=== PATIENT | female | born 1965 | race Caucasian/White ===

== ENCOUNTER 2023-04-15 12:11 | Emergency (ER) | payer OTHER, BC ==
[~2023-04-15] VITALS: Ht 165 cm; Wt 100.0 kg
[2023-04-15 12:22] VITALS: BP 141/85
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
== END 2023-04-15 12:50 | disposition home or self-care (01) ==
LOC: ER FS 12:13
DX: S80.01XA Contusion of right knee, initial encounter (principal); S20.219A Contusion of unspecified front wall of thorax, initial encounter; Z96.651 Presence of right artificial knee joint; V89.2XXA Person injured in unspecified motor-vehicle accident, traffic, initial encounter; Y92.410 Unspecified street and highway as the place of occurrence of the external cause
CPT/HCPCS: 73562